=== PATIENT | female | born 2000 | race Caucasian/White ===

== ENCOUNTER 2024-05-28 10:31 | Emergency (ER) | payer BC ==
[2024-05-28] MEDS ORDERED: Tetracaine 0.5% PF 4 ML BOT ONE (10:55)
[2024-05-28] MEDS ORDERED: Fluorescein Opthalmic Strip ONE (10:55)
[2024-05-28] MEDS ORDERED: Cyclopentolate 1% Opth Drop 2 ML BOT ONE (11:30)
[2024-05-28 12:04] LABS: #Basophils 0.02 10x3/uL (0.0-0.2); #Eosinophils 0.07 10x3/uL (0.0-0.5); #Monocytes 0.53 10x3/uL (0.0-1.1); %Basophils 0.3 % (0.0-2.0); %Eosinophils 1.1 % (0.0-6.0); %Lymphocytes 29.5 % (18.0-47.0); %Monocytes 8.2 % (0.0-10.0); %Neutrophils 60.6 % (40.0-75.0); Hematocrit 39.5 % (34.9-44.5); Hemoglobin 13.1 g/dL (12.0-15.5); Mean Corpuscular HGB CONC 33.2 g/dL (32.0-36.0); Mean Corpuscular Hemoglobin 30.7 pg (27.0-33.0); Mean Corpuscular Volume 92.5 fL (81.6-98.3); Mean Platelet Volume 10.4 fL (7.4-10.4); Platelet Count 296 10x3/uL (150-450); RBC Distribution Width 11.8 % (11.5-14.5); Red Blood Cell (RBC) Count 4.27 10x6/uL (3.90-5.03); White Blood Cell (WBC) Count 6.4 10x3/uL (3.5-10.5)
[2024-05-28 12:10] LABS: Anion Gap 13 mmol/L (10-20); BUN (Urea Nitrogen) 14 mg/dL (7.0-18.7); Calc. Creatinine Clearance 0 mL/min (70-130); Calcium 10.1 mg/dL (7.8-10.44); Carbon Dioxide 26 mmol/L (22-29); Chloride 106 mmol/L (98-107); Estimated GFR 70; Glucose 85 mg/dL (70-105); Potassium 4.4 mmol/L (3.5-5.1); Sodium 141 mmol/L (136-145)
== END 2024-05-28 13:11 | disposition home or self-care (01) ==
LOC: CSHERS 10:31
DX: H15.002 Unspecified scleritis, left eye (principal); Z55.6 Problems related to health literacy
CPT/HCPCS: 36415; 80048; 85025; 86140; 99283